=== PATIENT | female | born 1970 | race Hispanic/Latino ===

== ENCOUNTER 2018-05-27 05:45 | Emergency (ER) | payer SELFPAY ==
[2018-05-27] MEDS ORDERED: diphenhydrAMINE 50 MG/ML VIAL ONE (06:02)
[2018-05-27] MEDS ORDERED: Metoclopramide HCl 10 MG/2 ML VIAL ONE (06:02)
[2018-05-27] MEDS ORDERED: Ketorolac Tromethamine 30 MG/ML VIAL ONE (06:02)
[2018-05-27 06:21] LABS: #Basophils 0.1 thou/uL (0.0-0.2); #Eosinphils 0.1 thou/uL (0.0-0.7); #Lymphocytes 1.9 thou/uL (1.20-3.40); #Monocytes 0.4 thou/uL (0.11-0.59); #Neutrophils 4.8 thou/uL (1.40-6.50); %Basophils 0.9 % (0.0-1.0); %Lymphocytes 25.6 % (21.0-51.0); %Monocytes 5.2 % (0.0-10.0); %Neutrophils 66.3 % (42.0-75.0); Hemoglobin 15.2 g/dL (12.0-16.0); Mean Corpuscular HGB CONC 32.7 g/dL (32.0-36.0); Mean Corpuscular Hemoglobin 29.4 pg (27.0-31.0); Mean Platelet Volume 9.4 fL (7.4-10.4); Platelet Count 216 thou/uL (130-400); Red Blood Cell (RBC) Count 5.17 mill/uL (4.20-5.40); White Blood Cell (WBC) Count 7.3 thou/uL (4.8-10.8)
[2018-05-27 06:35] LABS: ALT (SGPT) 17 U/L (8-55); AST (SGOT) 17 U/L (5-34); Albumin 4.6 g/dL (3.5-5.0); Alkaline Phosphatase 65 U/L (40-150); Anion Gap 16 mmol/L (10-20); BUN (Urea Nitrogen) 11 mg/dL (7.0-18.7); Bilirubin, Total 0.6 mg/dL (0.2-1.2); Calc. Creatinine Clearance 0 mL/min (70-130); Calcium 9.8 mg/dL (7.8-10.44); Carbon Dioxide 23 mmol/L (22-29); Chloride 105 mmol/L (98-107); Estimated GFR-MDRD Greater than 90; Globulin 3.4 g/dL (2.4-3.5); Glucose 106 mg/dL (70-105); Potassium 3.7 mmol/L (3.5-5.1); Sodium 140 mmol/L (136-145)
[2018-05-27] MEDS ORDERED: methylPREDNISolone Sod Succ/PF 125 MG/2 ML VIAL ONE (07:33)
[2018-05-27] MEDS ORDERED: Magnesium 2 GM/50 ML BAG (IN WATER) ONE (07:33)
--- NOTE | 2018-05-27 11:19 | CT ---
PRELIMINARY REPORT/[facility]/EMERGENCY AFTER HOURS PROCEDURE: EXAM: CT Head Without Intravenous Contrast EXAM DATE/TIME: 05/27/2018 6:39 AM CLINICAL HISTORY: 48 years old, female; Pain; Headache; Migraine; Aura effect not specified; Does respond to medication ; With migrainosus (>72 hrs & severe); Patient HX: F48 presents to ed C/O URIAS and vomiting, onset last night. PT has HX of urias's but usually resolve with over the counter medications. PT took 600 MG ibupr ofen 4 hours ago with no relief. Symptoms worsen with light. TECHNIQUE: Axial computed tomography images of the head/brain without intravenous contrast. COMPARISON: No relevant prior studies available. FINDINGS: Brain: Normal. No hemorrhage. No significant white matter disease. No edema. Ventricles: Normal. No ventriculomegaly. Bones/joints: Normal. No acute fracture. Sinuses: Normal as visualized. No acute sinusitis. Mastoid air cells: Normal as visualized. No mastoid effusion. Soft tissues: Normal. IMPRESSION: No acute intracranial abnormality. Thank you for allowing us to participate in the care of your patient. Dictated and Authenticated by: Telma Rosario MD 05/27/2018 7:06 AM Central Time ([place] & [place]) FINAL REPORT CT BRAIN WITHOUT CONTRAST: Date: 05/27/18 HISTORY: Headache. Pain. Vomiting. COMPARISON: CT brain from 2013. FINDINGS/IMPRESSION: Findings and impression are concordant with the preliminary report by Armen. POS: [facility]
== END 2018-05-27 09:42 | disposition home or self-care (01) ==
LOC: ERS 05:45
DX: R51 Headache (principal); E78.5 Hyperlipidemia, unspecified; I10 Essential (primary) hypertension
CPT/HCPCS: 70450; 80053; 85025; 96365; 96367; 96375; J1200; J1885; J2765; J2930

== ENCOUNTER 2019-04-15 08:57 | Emergency (ER) | payer SELFPAY ==
[2019-04-15 09:41] LABS: #Lymphocytes 1.5 thou/uL (1.20-3.40); #Monocytes 0.2 thou/uL (0.11-0.59); #Neutrophils 4.3 thou/uL (1.40-6.50); %Basophils 0.4 % (0.0-1.0); %Eosinophils 0.4 % (0.0-10.0); %Monocytes 3.6 % (0.0-10.0); %Neutrophils 71.6 % (42.0-75.0); Hemoglobin 14.4 g/dL (12.0-16.0); Mean Corpuscular HGB CONC 33.5 g/dL (32.0-36.0); Mean Corpuscular Hemoglobin 29.6 pg (27.0-31.0); Mean Corpuscular Volume 88.5 fL (78.0-98.0); Mean Platelet Volume 9.9 fL (7.4-10.4); Platelet Count 194 thou/uL (130-400); RBC Distribution Width 11.9 % (11.5-14.5); Red Blood Cell (RBC) Count 4.86 mill/uL (4.20-5.40); White Blood Cell (WBC) Count 6.1 thou/uL (4.8-10.8)
[2019-04-15 09:47] LABS: ALT (SGPT) 18 U/L (8-55); AST (SGOT) 19 U/L (5-34); Albumin 4.9 g/dL (3.5-5.0); Alkaline Phosphatase 63 U/L (40-110); Anion Gap 14 mmol/L (10-20); BUN (Urea Nitrogen) 12 mg/dL (9.8-20.1); Bilirubin, Total 0.6 mg/dL (0.2-1.2); CK (CPK) 87 U/L (29-168); Calc. Creatinine Clearance 0 mL/min (70-130); Calcium 9.6 mg/dL (7.8-10.44); Carbon Dioxide 25 mmol/L (22-29); Chloride 107 mmol/L (98-107); Estimated GFR-MDRD Greater than 90; Globulin 2.8 g/dL (2.4-3.5); Glucose 112 mg/dL (70-105); Protein, Total 7.7 g/dL (6.0-8.3); Sodium 142 mmol/L (136-145)
--- NOTE | 2019-04-15 10:13 | RAD ---
XR Chest 1 View Portable HISTORY: Chest pain COMPARISON: 07/22/2016 study FINDINGS: Heart size and mediastinum are within normal limits the aorta is mildly tortuous. The lungs are clear of infiltrates. IMPRESSION: No active intrathoracic disease.
--- NOTE | 2019-04-20 13:41 | EKG ---
Test Reason : Blood Pressure : / mmHG Vent. Rate : 081 BPM Atrial Rate : 081 BPM P-R Int : 150 ms QRS Dur : 084 ms QT Int : 386 ms P-R-T Axes : 035 013 018 degrees QTc Int : 448 ms Normal sinus rhythm Normal ECG Confirmed by GASTON FERNANDES ([id number]), mapping editor ANTHONY FIGUEROA ([id number] on 04/20/2019 1:41:09 PM Referred By: Confirmed By:GASTON FERNANDES
== END 2019-04-15 11:40 | disposition home or self-care (01) ==
LOC: ERS 08:57
DX: F41.9 Anxiety disorder, unspecified (principal); R07.89 Other chest pain; I10 Essential (primary) hypertension; E78.5 Hyperlipidemia, unspecified; Z79.899 Other long term (current) drug therapy
CPT/HCPCS: 36415; 71045; 80053; 82550; 84484; 85025; 93005

== ENCOUNTER 2020-06-01 20:37 | Emergency (ER) | payer SELFPAY ==
[2020-06-01] MEDS ORDERED: Metoclopramide HCl 10 MG/2 ML VIAL ONE (21:11)
[2020-06-01] MEDS ORDERED: Ketorolac Tromethamine 30 MG/ML VIAL ONE (21:11)
[2020-06-01] MEDS ORDERED: Fentanyl 100 MCG/2 ML VIAL ONE (21:11)
[2020-06-01] MEDS ORDERED: Dexamethasone 4 mg/ml Vial ONE (21:11)
[2020-06-01] MEDS ORDERED: Ondansetron PF 4 MG/2 ML Vial ONE (21:17)
[2020-06-01 21:30] LABS: #Eosinphils 0.1 thou/uL (0.0-0.7); #Lymphocytes 2.5 thou/uL (1.20-3.40); #Monocytes 0.6 thou/uL (0.11-0.59); #Neutrophils 8.4 thou/uL (1.40-6.50); %Basophils 0.2 % (0.0-1.0); %Eosinophils 0.8 % (0.0-10.0); %Lymphocytes 21.6 % (21.0-51.0); %Monocytes 4.8 % (0.0-10.0); %Neutrophils 72.5 % (42.0-75.0); Hemoglobin 14.4 g/dL (12.0-16.0); Mean Corpuscular HGB CONC 33.5 g/dL (32.0-36.0); Mean Corpuscular Hemoglobin 29.8 pg (27.0-31.0); Mean Platelet Volume 9.4 fL (7.4-10.4); Platelet Count 210 thou/uL (130-400); RBC Distribution Width 12.1 % (11.5-14.5); Red Blood Cell (RBC) Count 4.82 mill/uL (4.20-5.40); White Blood Cell (WBC) Count 11.6 thou/uL (4.8-10.8)
--- NOTE | 2020-06-01 21:42 | CT ---
CT BRAIN NONCONTRAST: DATE: 06/01/2020 HISTORY: 50-year-old female with headache, nausea, vomiting, and blurred vision FINDINGS: There is no evidence of acute intra-axial or extra-axial hemorrhage. There is no midline shift or any other mass effect. There is no extra-axial fluid collection. The ventricles are normal in size and configuration. The tympanomastoid cavities, and the upper portions of the paranasal sinuses included in these images, are grossly clear. Calvarium is intact. IMPRESSION: Normal.
[2020-06-01 21:52] LABS: ALT (SGPT) 14 U/L (8-55); AST (SGOT) 16 U/L (5-34); Albumin 4.4 g/dL (3.5-5.0); Alkaline Phosphatase 70 U/L (40-110); Anion Gap 17 mmol/L (10-20); BUN (Urea Nitrogen) 12 mg/dL (9.8-20.1); Bilirubin, Total 0.2 mg/dL (0.2-1.2); Calc. Creatinine Clearance 0 mL/min (70-130); Calcium 9.6 mg/dL (7.8-10.44); Carbon Dioxide 22 mmol/L (22-29); Chloride 105 mmol/L (98-107); Estimated GFR-MDRD Greater than 90; Globulin 3.4 g/dL (2.4-3.5); Glucose 150 mg/dL (70-105); Potassium 3.7 mmol/L (3.5-5.1); Protein, Total 7.8 g/dL (6.0-8.3); Sodium 140 mmol/L (136-145)
== END 2020-06-01 22:30 | disposition home or self-care (01) ==
LOC: ERS 20:37
DX: R51.9 Headache, unspecified (principal); E78.5 Hyperlipidemia, unspecified; E78.00 Pure hypercholesterolemia, unspecified; I10 Essential (primary) hypertension; F41.9 Anxiety disorder, unspecified; Z79.899 Other long term (current) drug therapy
CPT/HCPCS: 70450; 80053; 85025; 96374; 96375; J1100; J1885; J2405; J2765; J3010